=== PATIENT | female | born 1970 | race Caucasian/White ===

== ENCOUNTER 2019-07-07 11:23 | Emergency (ER) | payer MEDICAID ==
[~2019-07-07] VITALS: Ht 152.4 cm; Wt 70.8 kg
[~2019-07-07 11:23] MED LIST: D-ME118S24 PO
[2019-07-07 11:46] VITALS: BP 128/73; PULSE 89; RESP 16; Ht 152.4 cm; Wt 70.8 kg
== END 2019-07-07 14:34 | disposition home or self-care (01) ==
LOC: FTE 11:23
DX: J06.9 Acute upper respiratory infection, unspecified (principal)
CPT/HCPCS: 71045; 81003; 81025; Z7502